=== PATIENT | female | born 1985 | race African-American/Black ===

== ENCOUNTER 2019-08-29 14:57 | Emergency (ER) | payer SELFPAY ==
--- NOTE | 2019-08-29 15:14 | ED.PDOC ---
History of Present Illness - General Chief Complaint: General Stated Complaint: body aches, fever Time Seen by Provider: 08/29/19 15:13 Source: patient - History of Present Illness Initial Comments: 33 yo F with PMH sig for sickle cell presenting for body aches, fever, congestion, mild sore throat. Tmax 101.7. Sx onset 4 days ago. Reports this feels like a sickle cell pain crisis. Pt is from [place] but visiting [place] for her sisters wedding, she came to [place] because her future [id number] family is from here. Denies runny nose, neck pain, neck stiffness, CP, SOB, abd pain, n/v/d, edema, urinary sx. No known sick contacts, but unsure because she flew. This is the first time she has flown, unsure if the altitude is what caused her sx. Denies sx consistent with previous acute chest in the past. Pt is on dilaudid and percocet po. Allergies/Adverse Reactions: Allergies Ondansetron Allergy (Verified 08/29/19 15:13) Home Medications: Ambulatory Orders Hydromorphone HCl [Dilaudid] 4 mg PO Q4H PRN 08/29/19 Hydroxyurea 500 mg PO TID 08/29/19 Oxycodone W/ Acetaminophen [Percocet 10-325 mg] 1 tab PO Q6H PRN 08/29/19 Quetiapine Fumarate [Seroquel] 50 mg PO BEDTIME 08/29/19 Azithromycin [Zithromax Z-Garry] 250 mg PO DAILY #6 tab 08/30/19 Review of Systems - Review of Systems Constitutional: States: fever. Denies: chills EENTM: States: nose congestion, throat pain. Denies: ear pain, ear discharge, throat swelling Respiratory: Denies: cough, orthopnea, short of breath, stridor, wheezing Cardiology: Denies: chest pain, edema, palpitations Gastrointestinal/Abdominal: Denies: abdominal pain, diarrhea, nausea, vomiting Genitourinary: Denies: dysuria, frequency, hematuria Musculoskeletal: States: muscle pain. Denies: back pain, muscle stiffness, neck pain Skin: Denies: change in color, lesions, rash Neurological: Denies: headache, numbness, weakness Endocrine: Denies: increased thirst, increased urine Family Medical History - Family History Mother Family History: Unknown Physical Exam - Physical Exam General Appearance: Alert, Comfortable, No apparent distress, Well Developed, Well Hydrated, Well Nourished Eye Exam: bilateral normal Ears, Nose, Throat: hearing grossly normal, normal ENT inspection, normal pharynx, other - no tonsillar exudate, no peritonsillar abscess Neck: non-tender, full range of motion, supple, normal inspection Respiratory: chest non-tender, lungs clear, normal breath sounds, no respiratory distress, no accessory muscle use Cardiovascular/Chest: normal peripheral pulses, regular rate, rhythm, no edema, no gallop, no JVD, no murmur Peripheral Pulses: radial,right: 2+, radial,left: 2+ Gastrointestinal/Abdominal: normal bowel sounds, non tender, soft, no organomegaly, no pulsatile mass Back Exam: normal inspection, no CVA tenderness, no vertebral tenderness Extremity: normal range of motion, non-tender, normal inspection, no pedal edema, no calf tenderness Neurologic: no motor/sensory deficits, alert, normal mood/affect Skin Exam: normal color, warm/dry Progress - Progress Progress: Pt given three rounds of pain medication, after treatment stated she was feeling much better and wanting to go home. Pt thoughout stay voiced frustration with not receiving dilaudid, was insistent on Benadryl with her morphine doses, stating it was "insulting to give her morphine" and at times became very hostile with me despite calmly trying to explain our treatment plan, at one point the pt apologized, I offered admission but pt declined. Discussed findings of trichomonas in her urine and need for treatment, denies sx, agrees with treatment for all STD's, explained need for follow up with health department for other STD testing, as well as informing all her partners and abstaining from intercourse until a week after they are treated. I explained and reviewed all results with the pt. I explained that emergent conditions may arise and to return to the ER for new, worsening, or any persistent conditions. I've explained the importance of f/u for recheck. All questions and concerns addressed at this time. Pt understands and agrees with plan. Pt well appearing, NAD, is stable for discharge. Aury Benz MD Emergency Medicine Physician Billing Number [id number] - Results/Orders Results/Orders: 08/29/19 16:15 RETICULOCYTE COUNT Stat 08/29/19 17:15 GC CHLAMYDIA RNA,TMA Stat Laboratory Results - last 24 hr 08/29/19 08/29/19 08/29/19 16:20 16:20 17:13 WBC 6.2 RBC 4.78 Hgb 8.6 L Hct 28.1 L MCV 58.9 L MCH 18.0 L MCHC 30.5 L RDW 25.6 H Plt Count 405 H MPV 8.3 Absolute Neuts (auto) 4.00 Absolute Lymphs (auto) 1.70 Absolute Monos (auto) 0.30 Absolute Eos (auto) 0.10 Absolute Basos (auto) 0.10 Neutrophils % 64.8 Lymphocytes % 27.7 Monocytes % 4.3 Eosinophils % 2.3 Basophils % 0.9 Normal RBC Morphology Stain quality accept Sodium 140 Potassium 4.2 Chloride 106 Carbon Dioxide 24 Anion Gap 14.2 BUN 14 Creatinine 0.67 BUN/Creatinine Ratio 20.9 H Random Glucose 92 Serum Osmolality 279.5 Calcium 8.9 Total Bilirubin 0.4 AST 15 ALT 12 Alkaline Phosphatase 53 Serum Total Protein 7.7 Albumin 4.1 Globulin 3.6 H Albumin/Globulin Ratio 1.1 Urine Color Yellow Urine Appearance Cloudy Urine pH 6.0 Ur Specific [place] 1.025 Urine Protein Negative Urine Glucose (UA) Negative Urine Ketones Negative Urine Blood Negative Urine Nitrite Negative Urine Bilirubin Negative Urine Urobilinogen 0.2 Ur Leukocyte Esterase Negative Urine RBC 0-1 Urine WBC 0-1 Ur Epithelial Cells 40-50 Urine Bacteria 1+ Urine Trichomonas 5-10 H Urine Yeast Rare Urine HCG, Qual 08/29/19 17:15 WBC RBC Hgb Hct MCV MCH MCHC RDW Plt Count MPV Absolute Neuts (auto) Absolute Lymphs (auto) Absolute Monos (auto) Absolute Eos (auto) Absolute Basos (auto) Neutrophils % Lymphocytes % Monocytes % Eosinophils % Basophils % Normal RBC Morphology Sodium Potassium Chloride Carbon Dioxide Anion Gap BUN Creatinine BUN/Creatinine Ratio Random Glucose Serum Osmolality Calcium Total Bilirubin AST ALT Alkaline Phosphatase Serum Total Protein Albumin Globulin Albumin/Globulin Ratio Urine Color Urine Appearance Urine pH Ur Specific [place] Urine Protein Urine Glucose (UA) Urine Ketones Urine Blood Urine Nitrite Urine Bilirubin Urine Urobilinogen Ur Leukocyte Esterase Urine RBC Urine WBC Ur Epithelial Cells Urine Bacteria Urine Trichomonas Urine Yeast Urine HCG, Qual Negative CXR: EXAM DESCRIPTION: Chest,2 Views CLINICAL HISTORY: fever COMPARISON: None Available. TECHNIQUE: Frontal and lateral radiographic views of the chest FINDINGS: Cardiac silhouette shows upper limits of normal heart size. Pulmonary vascularity is within normal limits. Mildly prominent peribronchial wall thickening is seen bilaterally. Subtle hazy opacities in the perihilar and infrahilar regions may represent atelectasis versus infiltrate. No pleural effusion. No pneumothorax. Visualized osseous structures show no destructive lesions. IMPRESSION: 1. Mildly prominent peribronchial wall thickening is nonspecific, and can be seen with reactive airway disease versus bronchitis versus atypical infection. 2. Subtle hazy opacities perihilar and infrahilar regions may represent atelectasis versus infiltrate. Electronically signed by: Js Koroma MD 08/29/2019 3:59 PM NAILHEAD SETTER Vital Signs - 24 hr 08/29/19 08/29/19 08/29/19 15:15 16:00 17:00 Temperature 99.5 F 98.9 F Pulse Rate [ 91 H 82 54 L left brachial] Respiratory 16 17 12 Rate Blood Pressure 163/117 106/68 134/63 [left brachial] O2 Sat by Pulse 98 90 L 91 L Oximetry 08/29/19 08/29/19 08/29/19 18:00 19:00 19:57 Temperature 98 F Pulse Rate [ 70 83 92 H left brachial] Respiratory 20 18 18 Rate Blood Pressure 143/77 167/104 157/111 [left brachial] O2 Sat by Pulse 95 100 100 Oximetry Departure - Departure Clinical Impression: Sickle cell pain crisis, Trichimoniasis Time of Disposition: 19:48 Disposition: Discharge to Home or Self Care Health Concerns: Condition: stable Departure Forms: ED Discharge - Pt. Copy, Patient Portal Self Enrollment Instructions: Sickle Cell Disease (DC) Prescriptions: Azithromycin [Zithromax Z-Garry] 250 mg PO DAILY #6 tab Home Medications: Ambulatory Orders Hydromorphone HCl [Dilaudid] 4 mg PO Q4H PRN 08/29/19 Hydroxyurea 500 mg PO TID 08/29/19 Oxycodone W/ Acetaminophen [Percocet 10-325 mg] 1 tab PO Q6H PRN 08/29/19 Quetiapine Fumarate [Seroquel] 50 mg PO BEDTIME 08/29/19 Azithromycin [Zithromax Z-Garry] 250 mg PO DAILY #6 tab 08/30/19 Additional Instructions: Follow up: [facility] As needed, if symptoms worsen Your Primary Care Physician Make appointment, two days, for follow up
[2019-08-29] MEDS ORDERED: MORPHINE SULFATE INJ 10 MG/ML VIAL IV ONE ×3 (15:52→18:50)
[2019-08-29] MEDS ORDERED: HYDROcodone 5MG/APAP 325MG 1 EA TAB PO ONE (15:52)
[2019-08-29] MEDS ORDERED: SODIUM CHLORIDE 0.9% 1000ML 1,000 ML IVS ONE (15:52)
--- NOTE | 2019-08-29 16:00 | RAD ---
EXAM DESCRIPTION: Chest,2 Views CLINICAL HISTORY: fever COMPARISON: None Available. TECHNIQUE: Frontal and lateral radiographic views of the chest FINDINGS: Cardiac silhouette shows upper limits of normal heart size. Pulmonary vascularity is within normal limits. Mildly prominent peribronchial wall thickening is seen bilaterally. Subtle hazy opacities in the perihilar and infrahilar regions may represent atelectasis versus infiltrate. No pleural effusion. No pneumothorax. Visualized osseous structures show no destructive lesions. IMPRESSION: 1. Mildly prominent peribronchial wall thickening is nonspecific, and can be seen with reactive airway disease versus bronchitis versus atypical infection. 2. Subtle hazy opacities perihilar and infrahilar regions may represent atelectasis versus infiltrate. Electronically signed by: Js Koroma MD 08/29/2019 3:59 PM POWER PLANT ENGINEER
[2019-08-29] MEDS ORDERED: diphenhydrAMINE HCL 50 MG/ML VIAL ONE (16:54)
[2019-08-29] MEDS ORDERED: diphenhydrAMINE HCL 50 MG/ML VIAL IV ONE ×2 (16:55→18:51)
[2019-08-29] MEDS ORDERED: AZITHROMYCIN 250 MG TAB PO ONE (18:52)
[2019-08-29] MEDS ORDERED: LIDOCAINE 1% 2 ML VIAL INJ ONE (19:01)
[2019-08-29 19:24] VITALS: O2SAT 100
[2019-08-29 20:40] VITALS: BP 157/111; TEMP 98
== END 2019-08-29 19:57 | disposition home or self-care (01) ==
LOC: ER 14:57
DX: D57.00 Hb-SS disease with crisis, unspecified (principal); A59.9 Trichomoniasis, unspecified; R09.81 Nasal congestion; Z79.899 Other long term (current) drug therapy; Z88.8 Allergy status to other drugs, medicaments and biological substances
CPT/HCPCS: 36415; 71046; 80053; 81001; 81025; 85025; 85045; 87491; 87502; 87591; J0696; J1200; J2270; J7030; Q0144